=== PATIENT | male | born 1980 | race Caucasian/White ===

== ENCOUNTER 2018-09-04 11:22 | Emergency (ER) | payer OTHER ==
[~2018-09-04] VITALS: Ht 180.3 cm; Wt 92.4 kg
--- NOTE | 2018-09-04 11:54 | NUR ---
TO ROOM 03
[2018-09-04] MEDS ORDERED: FAMOTIDINE 20 MG TABLET ONE (12:00)
[2018-09-04] MEDS ORDERED: FAMOTIDINE 20 MG TABLET PO ONE (12:00)
[2018-09-04] MEDS ORDERED: ONDANSETRON ODT 4 MG ONE (12:00)
[2018-09-04] MEDS ORDERED: MAALOX/HYOSCYAMINE/LIDOCAINE 45 ML BTL PO ONE (12:00)
[2018-09-04] MEDS ORDERED: MAALOX/HYOSCYAMINE/LIDOCAINE 45 ML BTL ONE (12:00)
[2018-09-04] MEDS ORDERED: ONDANSETRON ODT 4 MG PO ONE (12:00)
[2018-09-04 12:02] LABS: BASOPHILS # (AUTO) 0.05 x10^3/uL (0-0.1); BASOPHILS % (AUTO) 1 % (0-1); EOSINOPHILS # (AUTO) 0.29 x10^3/uL (0-0.4); EOSINOPHILS % (AUTO) 4 % (1-7); LYMPHOCYTES # (AUTO) 2.28 x10^3/uL (1-3.4); LYMPHOCYTES % (AUTO) 32 % (22-44); MD NO; MEAN CORPUSCULAR HEMOGLOBIN 29.4 pg (27.5-34.5); MEAN CORPUSCULAR HGB CONC 33.2 g/dL (33.2-36.2); MEAN CORPUSCULAR VOLUME 88.4 fL (81-97); MEAN PLATELET VOLUME 9.4 fL (7.4-10.4); MONOCYTES # (AUTO) 0.84 x10^3/uL (0.2-0.8); MONOCYTES % (AUTO) 12 % (2-9); NEUTROPHILS # (AUTO) 3.63 x10^3/uL (1.8-6.8); NEUTROPHILS % (AUTO) 51 % (42-75); PLATELET COUNT 369 x10^3/uL (130-400); RED BLOOD COUNT 5.68 x10^6/uL (4.38-5.82); RED CELL DISTRIBUTION WIDTH 14.5 % (9.4-14.8)
--- NOTE | 2018-09-04 12:04 | NUR ---
PT C/O N/V/D SINCE LAST NIGHT. REPORTS EATING SEAFOOD TWO DAYS AGO. C/O MILD SHARP BILAT UPPER QUAD ABD PAIN. PT IS ALERT, ORIENTED, WITH NAD. PT IS CONNECTED TO THE MONITOR. CALL LIGHT WITHIN REACH.
[2018-09-04 12:15] LABS: ALANINE AMINOTRANSFERASE 63 U/L (12-78); ALBUMIN 4.2 g/dL (3.4-5.0); ANION GAP 3 mmol/L (5-15); CALCIUM 9.2 mg/dL (8.5-10.1); CHLORIDE 106 mmol/L (98-107); CREATININE 0.98 mg/dL (0.7-1.3)
[2018-09-04 12:17] LABS: ALKALINE PHOSPHATASE 82 U/L (45-117); BILIRUBIN,TOTAL 0.4 mg/dL (0.2-1.0); TOTAL PROTEIN 8.4 g/dL (6.4-8.2)
[2018-09-04 13:07] VITALS: BP 127/83
--- NOTE | 2018-09-04 13:07 | NUR ---
PT IS RESTING IN BED, WATCHING TV, RESPIRATIONS EQUAL AND NON LABORED. NAD. PT IS CONNECTED TO THE MONITOR. CALL LIGHT WITHIN EACH. AT BEDSIDE.
--- NOTE | 2018-09-04 14:17 | NUR ---
Patient given discharge instructions and they have confirmed that they understand the instructions. Patient ambulatory with steady gait.
== END 2018-09-04 14:18 | disposition home or self-care (01) ==
LOC: ED 12:43
DX: A08.4 Viral intestinal infection, unspecified (principal)
CPT/HCPCS: 36415; 76700; 80053; 83690; 85025; 99284; Q0162

== ENCOUNTER 2018-12-03 06:30 | Emergency (ER) | payer OTHER ==
[~2018-12-03] VITALS: Ht 180.3 cm; Wt 90.2 kg
[2018-12-03 06:33] VITALS: BP 119/78
--- NOTE | 2018-12-03 06:44 | NUR ---
PT PLACED IN ROOM. HERE FOR RASH AND BURNING TO GENITALIA AREA.
== END 2018-12-03 07:44 | disposition home or self-care (01) ==
LOC: ED 06:44
DX: R21 Rash and other nonspecific skin eruption (principal)
CPT/HCPCS: 87529; 99283